=== PATIENT | male | born 1975 | race Caucasian/White ===

== ENCOUNTER 2018-05-10 20:02 | Emergency (ER) | payer BC, OTHER ==
[2018-05-10 20:27] VITALS: BP 105/75
--- NOTE | 2018-05-10 20:48 | UC ---
Headache HPI - HPI Summary HPI Summary: The patient is a 43 y/o M presenting to [facility] c/o aching frontal, occipital, and bilateral temporal headaches for the past 11 days. Since onset, he has had body aches, fever (101F), nausea, sore throat, ear ache, diarrhea, and decreased appetite. His symptoms have since subsided except for the headaches. The pain is currently rated 5/10 in severity. He has taken Advil to moderately relieve his symptoms. He denies neck pain, cough, dysuria, hematuria, and abd pain. He had a Lyme disease test which was mostly negative, and he doesn't recall getting a tick bite. He has hx of viral meningitis in 2001. - History Of Current Complaint Chief Complaint: UCGeneralIllness Stated Complaint: FEVER, ACHES, AND HEADACHE Time Seen by Provider: 05/10/18 20:38 Hx Obtained From: Patient Onset/Duration: Sudden Onset, Lasting Days, Still Present Onset Of Symptoms: Sudden Initially Headache Was: Moderate Currently Pain Is: Moderate Pain Intensity: 5 Pain Scale Used: 0-10 Numeric Timing: Constant Character: Typical Headache Location of Headache: Frontal, Temporal, Occipital Aggravating Factor(s): Nothing Allevating Factor(s): Other (Noted In Comments) - Advil Associated Signs And Symptoms: Positive: Fever - 101F, Other (Noted In Comments ) - POSITIVE: body aches, sore throat, ear ache, diarrhea, decreased appetite; NEGATIVE: runny nose, cough, abd pain, dysuria, hematuria. Negative: Neck Pain Head: 1 - frontal headaches 2 - bilateral headaches 3 - occipital headaches - Allergies/Home Medications Allergies/Adverse Reactions: Allergies Allergy/AdvReac Type Severity Reaction Status Date / Time No Known Allergies Allergy Verified 05/10/18 20:27 Home Medications: Home Medications Citalopram TAB* [CeleXA TAB*] 20 mg PO DAILY 05/10/18 [History Confirmed ] Ibuprofen/Pseudoephedrine HCl [Advil Cold & Sinus] 1 tab PO ONCE PRN 05/10/18 [ History Confirmed 08/16/18] PMH/Surg Hx/FS Hx/Imm Hx Other Endocrine History: NEGATIVE: diabetes Other Cardiovascular History: NEGATIVE: HTN Other Neurological History: Meningitis - Surgical History Surgical History: Yes Surgery Procedure, Year, and Place: RT RING FINGER CRUSH INJURY - Family History Known Family History: Negative: Hypertension - Social History Alcohol Use: Occasionally Substance Use Type: None Smoking Status (MU): Never Smoked Tobacco Review of Systems Constitutional: Fever - 101F, Other - body aches ENT: Sore Throat, Ear Ache, Other - NEGATIVE: nasal discharge Respiratory: Other - NEGATIVE: cough Gastrointestinal: Diarrhea, Nausea, Other - POSITIVE: decreased appetite; NEGATIVE: abd pain Genitourinary: Other - NEGATIVE: dysuria, hematuria Musculoskeletal: Other: - NEGATIVE: neck pain Neurological: Headache - frontal, occipital, and bilateral temporal All Other Systems Reviewed And Are Negative: Yes Physical Exam - Summary Physical Exam Summary: General: well-appearing, no pain distress Skin: warm, color reflects adequate perfusion, dry Head: normal Eyes: EOMI, DESIRE ENT: normal Neck: supple, nontender Respiratory: CTA, breath sounds present Cardiovascular: RRR Abdomen: soft, nontender Bowel: present Musculoskeletal: normal, strength/ROM intact Neurological: sensory/motor intact, A&O x3 Psychological: affect/mood appropriate Triage Information Reviewed: Yes Vital Signs: Initial Vital Signs Temp 97.4 F 05/10/18 20:20 Pulse 92 05/10/18 20:20 Resp 16 05/10/18 20:20 BP 105/75 05/10/18 20:20 Pulse Ox 99 05/10/18 20:20 Vital Signs Reviewed: Yes Headache Course/Dx - Course Course Of Treatment: Medications reviewed. Allergies noted. SX HAVE BEEN GOING ON FOR > 10 DAYS. THEY INCLUDE HEADACHE, NO NECK OR BACK PAIN. GENERALIZED BODY ACHES. SOME NAUSEA. THE PATIENT REPORTS HE HAD VIRAL MENINGITIS IN 2001 AND THIS DOES NOT FEEL LIKE VIRAL MENINGITIS. WE DISCUSSED GOING TO THE EMERGENCY DEPARTMENT FOR FURTHER EVALUATION TO INCLUDE THE POSSIBILITY OF A SPINAL TAP. WE ALSO DISCUSSED ABX TREATMENT DUE TO DURATION OF SX. AT THIS TIME WILL TREAT WITH DOXY 100MG PO BID X 14 DAYS. THE PATIENT KNOWS IF HE WORSENS TO GO TO THE ED. - Differential Dx/Diagnosis Provider Diagnoses: HEADACHE. FEVERS Discharge - Sign-Out/Discharge Documenting (check all that apply): Patient Departure - Patient will be discharged home. - Discharge Plan Condition: Stable Disposition: HOME Prescriptions: DOXYcycline CAP(*) [DOXYcycline 100MG CAP(*)] 100 mg PO BID #26 cap Patient Education Materials: Fever in Adults (ED), Acute Headache (ED) [place]: [facility] [place] [facility] [Outside] Additional Instructions: FOLLOW UP WITH YOUR DOCTOR IF NOT COMPLETELY IMPROVED. GO TO THE EMERGENCY DEPARTMENT FOR ANY WORSENING OF YOUR CONDITION; CONTINUED HEADACHE/FEVER, NECK/BACK PAIN/STIFFNESS, YOU FEEL ILL OR QUESTIONS OR CONCERNS. - Billing Disposition and Condition Condition: STABLE Disposition: Home Attestation Statement Scribe Attestation: This is na Graham documenting for attending Dr. Sebastian Koroma MD. User Type: Provider with Scribe Provider Attestation: The documentation recorded by the scribe accurately reflects the service I personally performed and the decisions made by me.
[2018-05-10] MEDS ORDERED: DOXYcycline CAP(*) 100 MG PO ONE ×2 (21:01)
== END 2018-05-10 21:26 | disposition home or self-care (01) ==
LOC: UCEAST 20:02
DX: R51 Headache (principal); R50.9 Fever, unspecified; M79.1 Myalgia; J02.9 Acute pharyngitis, unspecified; H92.09 Otalgia, unspecified ear; R19.7 Diarrhea, unspecified
CPT/HCPCS: 99212; A9270-GY; G0463

== ENCOUNTER 2018-05-14 13:04 | Emergency (ER) | payer BC ==
--- NOTE | 2018-05-14 16:24 | ED ---
HPI Febrile Illness - HPI Summary HPI Summary: Pt is a 43 y/o male who presents to [facility] c/o fever and aches for 2 weeks. Pt states his peak fever was 101 degrees F. He also c/o of fatigue, headache mainly in the front of his head, and decreased appetite and nausea due to the headache. He denies any visual changes with the headache, vomiting, neck pain, or back pain. Pt describes the headache as 3/10 currently, but 8-9/10 at its worst. In the evening the headache becomes worse and is usually worse on the left side. Advil cold and flu relieves his symptoms. He also reports an episode of pain over his left temporal artery. He states he went to the 4 days ago, where a lyme blood test was mostly negative but was slightly positive. He was started on Doxycycline, and has completed 4 doses. He was advised to seek medical attention if his symptoms did not improve. - History of Current Complaint Chief Complaint: EDHeadache Time Seen by Provider: 05/14/18 15:33 Hx Obtained From: Patient Onset/Duration: Started Weeks Ago - 2, Still Present Timing: Constant Current Severity: Mild Pain Intensity: 2 Pain Scale Used: 0-10 Numeric Alleviating Factors: OTC Medicine - Advil cold and flu - Allergy/Home Medications Allergies/Adverse Reactions: Allergies Allergy/AdvReac Type Severity Reaction Status Date / Time No Known Allergies Allergy Verified 05/14/18 16:06 PMH/Surg Hx/FS Hx/Imm Hx Endocrine/Hematology History: Denies: Hx Diabetes Cardiovascular History: Denies: Hx Hypertension, Hx Pacemaker/ICD Respiratory History: Denies: Hx Asthma Musculoskeletal History: Denies: Hx Rheumatoid Arthritis, Hx Osteoporosis Sensory History: Denies: Hx Hearing Aid Neurological History: Reports: Other Neuro Impairments/Disorders - Viral meningitis Psychiatric History: Denies: Hx Panic Disorder - Surgical History Surgery Procedure, Year, and Place: RT RING FINGER CRUSH INJURY - Immunization History Immunizations Up to Date: Yes Infectious Disease History: Yes Infectious Disease History: Denies: Traveled Outside the [place] in Last 30 Days - Family History Known Family History: Positive: Other - NEGATIVE: autoimmune disorder Negative: Hypertension - Social History Alcohol Use: Occasionally Substance Use Type: Reports: None Smoking Status (MU): Never Smoked Tobacco Review of Systems Positive: Fever, Fatigue, Other - Body aches, decreased appetite due to headache Positive: Other - NEGATIVE: visual changes Positive: Nausea. Negative: Vomiting Positive: Other - NEGATIVE: neck pain, back pain Positive: Headache All Other Systems Reviewed And Are Negative: Yes Physical Exam - Summary Physical Exam Summary: GENERAL: Patient is a well developed and nourished M who is lying comfortable in the stretcher. Patient is not in any acute respiratory distress. HEAD AND FACE: Normocephalic EYES: PERRLA, EOMI x 2. EARS: Hearing grossly intact. MOUTH: Oropharynx within normal limits. NECK: Supple, trachea is midline, no adenopathy, no JVD, no carotid bruit. CHEST: Symmetric, no tenderness at palpation LUNGS: Clear to auscultation bilaterally. No wheezing or crackles. CVS: Regular rate and rhythm, S1 and S2 present, no murmurs or gallops appreciated. ABDOMEN: Soft, non-tender. Bowel sounds are normal. No abdominal abnormal pulsations. EXTREMITIES: Full ROM in all major joints, no edema, no cyanosis or clubbing. NEURO: Alert and oriented x 3. No acute neurological deficits. Speech is normal and follows commands. SKIN: Dry and warm GCS: 15 Triage Information Reviewed: Yes Vital Signs On Initial Exam: Initial Vitals Temp Pulse Resp BP Pulse Ox 97.3 F 86 18 119/78 97 05/14/18 13:08 05/14/18 13:08 05/14/18 13:08 05/14/18 13:08 05/14/18 13:08 Vital Signs Reviewed: Yes Diagnostics - Vital Signs Vital Signs Temp Pulse Resp BP Pulse Ox 05/14/18 14:32 98.6 F 81 18 121/77 99 05/14/18 13:08 97.3 F 86 18 119/78 97 - Laboratory Result Diagrams: 05/14/18 16:48 05/14/18 16:48 Lab Statement: Any lab studies that have been ordered have been reviewed, and results considered in the medical decision making process. - CT Brain CT CT Interpretation: No Acute Changes - There is no evidence of intracranial mass or hemorrhage noted. ED physician reviewed radiology report. CT Interpretation Completed By: Radiologist Course/Dx - Course Course Of Treatment: Pt is a 43 y/o male who [place] [facility] [place] and [place] 2 weeks. Pt states his peak fever was 101 degrees F. He also c/o of fatigue, headache mainly in the front of his head, and decreased appetite and nausea due to the headache. He denies any visual changes with the headache, vomiting, neck pain, or back pain. Pt describes the headache as 3/10 currently, but 8-9/10 at its worst. In the evening the headache becomes worse and is usually worse on the left side. Advil cold and flu relieves his symptoms. He also reports an episode of pain over his left temporal artery. He states he went to the 4 days ago, where a lyme blood test was mostly negative but was slightly positive. He was started on Doxycycline, and has completed 4 doses. A physical exam revealed a GCS of 15. A brain CT was negative. Final dx headache. I discussed results with patient and he agrees with this plan. He is hemodynamically stable upon discharge. Strict return precautions given and he will otherwise follow up with his PCP. - Diagnoses Provider Diagnoses: Lyme disease, Headache Discharge - Sign-Out/Discharge Documenting (check all that apply): Patient Departure - Discharge - Discharge Plan Condition: Stable Disposition: HOME Patient Education Materials: Lyme Disease (ED), Acute Headache (ED) Referrals: [facility] [place] [facility] [Outside] - 3 Days Additional Instructions: RETURN TO THE EMERGENCY DEPARTMENT FOR CHANGING OR WORSENING SYMPTOMS. - Billing Disposition and Condition Condition: STABLE Disposition: Home - Attestation Statements Document Initiated by Estiven: Yes Documenting Scribe: Dulce Buchanan Provider For Whom Estiven is Documenting (Include Credential): Demian Lowery MD Scribe Attestation: Dulce Gibson, scribed for Demian Lowery MD on 05/18/18 at 1352. Scribe Documentation Reviewed: Yes Provider Attestation: The documentation as recorded by the Dulce monzon accurately reflects the service I personally performed and the decisions made by me, Demian Lowery MD
--- NOTE | 2018-05-14 16:39 | RAD ---
Indication: Headaches. CT of the brain was performed without IV contrast. Ventricular structures are midline. No midline shift is noted. The extra-axial spaces are unremarkable. There is no evidence of intracranial mass or hemorrhage. No other high or low density lesions are identified. Mastoid air cells and paranasal sinuses are grossly unremarkable. IMPRESSION: There is no evidence of intracranial mass or hemorrhage noted.
[2018-05-14 16:55] LABS: ABS Basophils 0 10^3/ul (0-0.2); ABS Eosinophils 0.1 10^3/ul (0-0.6); ABS Lymphocytes 0.8 10^3/ul (1.0-4.8); ABS Monocytes 0.4 10^3/ul (0-0.8); ABS Neutrophils 5.6 10^3/ul (1.5-7.7); ABS Nucleated RBC 0 10^3/ul; Eosinophil % 1.5 % (0-6); Hematocrit 44 % (42-52); Hemoglobin 15.4 g/dl (14.0-18.0); Lymphocyte % 11.2 % (25-47); Mean Corpuscular HGB Conc 35 g/dl (31-36); Mean Corpuscular Hemoglobin 31 pg (27-31); Mean Corpuscular Volume 88 fL (80-94); Mean Platelet Volume 9.1 um3 (7.4-10.4); Nucleated Red Blood Cells % 0.1; Platelet Count 214 10^3/ul (150-450); Red Cell Distribution Width 12 % (10.5-15); White Blood Count 6.8 10^3/ul (3.5-10.8)
[2018-05-14 17:16] LABS: EGFR Non-African American 108.1 (>60)
[2018-05-14 18:16] VITALS: BP 110/75
== END 2018-05-14 18:14 | disposition home or self-care (01) ==
LOC: ED 13:04
DX: A69.20 Lyme disease, unspecified (principal); R50.9 Fever, unspecified; R53.83 Other fatigue; R11.0 Nausea; R51 Headache
CPT/HCPCS: 36415; 70450; 80053; 85025; 85652; 86140; 86617; 86618; 87040; 99282